=== PATIENT | female | born 1970 ===

== ENCOUNTER 2022-04-16 15:14 | Emergency (ER) | payer OTHER ==
[~2022-04-16] VITALS: Ht 147.3 cm; Wt 54.4 kg
[~2022-04-16 15:14] MED LIST: KETO10TA2 PO
[2022-04-16] MEDS ORDERED: VOLTARIN (16:29)
== END 2022-04-16 18:57 | disposition home or self-care (01) ==
LOC: ER 15:14
DX: A49.3 Mycoplasma infection, unspecified site (principal); Z20.822 Contact with and (suspected) exposure to COVID-19